=== PATIENT | female | born 1980 | race Two or more races ===

== ENCOUNTER 2022-02-09 16:13 | Emergency (ER) | payer OTHER ==
[~2022-02-09] VITALS: Ht 160 cm; Wt 75.7 kg
[2022-02-09] MEDS ORDERED: ALBUTEROL0.63 MG/3 (16:24)
== END 2022-02-09 20:35 | disposition home or self-care (01) ==
LOC: ER 16:13
DX: R05.9 Cough, unspecified (principal); Z20.822 Contact with and (suspected) exposure to COVID-19

== ENCOUNTER 2022-07-08 17:37 | Emergency (ER) | payer OTHER ==
[~2022-07-08] VITALS: Ht 152.4 cm; Wt 77.1 kg
[~2022-07-08 17:37] MED LIST: ALBUTEROL0.63 MG/3
== END 2022-07-09 12:03 | disposition home or self-care (01) ==
LOC: ER 17:37
DX: D64.9 Anemia, unspecified (principal); K64.2 Third degree hemorrhoids; Z88.6 Allergy status to analgesic agent; R51.9 Headache, unspecified

== ENCOUNTER → 2022-07-09 | Day surgery (SDC) | payer OTHER ==
[~2022-07-09] VITALS: Ht 152.4 cm; Wt 78.5 kg
== END | disposition home or self-care (01) ==
LOC: ADM 07-03 12:45 → CIR.AMB 06:00
PROVIDERS: ATTEND Colon & Rectal Surgery
DX: K64.8 Other hemorrhoids (principal); K64.4 Residual hemorrhoidal skin tags; K64.2 Third degree hemorrhoids; Z88.6 Allergy status to analgesic agent; F17.210 Nicotine dependence, cigarettes, uncomplicated